=== PATIENT | female | born 1985 | race Caucasian/White ===

== ENCOUNTER 2018-08-30 08:00 | Outpatient (CLI) | payer MEDICAID ==
[2018-08-30 19:18] LABS: BILIRUBIN,URINE NEGATIVE (NEGATIVE); GLUCOSE, URINE (UA) NEGATIVE (NEGATIVE); KETONES,URINE (UA) NEGATIVE (NEGATIVE); LEUKOCYTE ESTERASE, URINE SMALL (NEGATIVE); NITRITE,URINE NEGATIVE (NEGATIVE); OCCULT BLOOD,URINE NEGATIVE (NEGATIVE); PH,URINE 7.5 PH (5.0-7.5); PROTEIN,URINE NEGATIVE (NEGATIVE); UROBILINOGEN,URINE 0.2 (NORMAL) E.U./dL (NORMAL)
[2018-08-30 19:26] LABS: CLARITY,URINE CLOUDY (CLEAR)
[2018-08-30 19:54] LABS: BACTERIA,URINE Many /HPF (None Seen); RBC,URINE None Seen /HPF (0-5); SQUAMOUS EPITHELIAL CELL,UR MANY Squamous (<= Few)
== END 2018-08-30 23:59 ==
LOC: LAB.R 08:00
PROVIDERS: ATTEND Physician Assistant Medical
DX: R30.0 Dysuria (principal)
CPT/HCPCS: 81001; 87086

== ENCOUNTER 2018-10-03 07:59 | Emergency (ER) | payer MEDICAID ==
[2018-10-03] MEDS ORDERED: LORazepam 2 MG/ML VIAL IM STA (08:33)
--- NOTE | 2018-10-03 08:36 | ED Physician Documentation ---
History of Present Illness - Stated complaint Stated Complaint: ANXIETY/2ND TO FEMALE - Chief complaint Chief Complaint: MHE - History obtained from History obtained from: Patient, Family - History of Present Illness Timing: Yesterday - Additonal information Additional information: 33-year-old female with a history of chronic anxiety who is on Zoloft and BuSpar has had a recent therapeutic about 3 days ago and beginning yesterday afternoon she developed some increasing anxiety she is a very difficult night last night this morning she took half a milligram of Xanax without much relief. She relates that at one time she had a miscarriage at 20 weeks and this resulted in a near experience. She is concerned that perhaps this recent therap eutic has reopened this prior experience. She relates that she has had one prior therapeutic she has 4 children and she has had complicated pregnancies. She is here today with her who is supportive at the bedside. Review of Systems Constitutional: denies: Fever Eyes: denies: Decreased vision Ears: denies: Ear pain Nose: denies: Congestion Throat: denies: Sore throat Cardiac: denies: Chest pain / pressure, Palpitations Respiratory: denies: Dyspnea, Cough GI: denies: Abdominal Pain, Nausea, Vomiting : denies: Dysuria, Frequency Skin: denies: Rash Neurologic: denies: Generalized weakness, Focal weakness, Numbness, Difficulty speaking Psychiatric: reports: Anxiety PD PAST MEDICAL HISTORY - Past Medical History Past Medical History: Yes Psych: Depression, Anxiety - Past Surgical History Past Surgical History: Yes General: Cholecystectomy Ortho: Other /K [employer]: Dilation and currettage - Present Medications Home Medications: Ambulatory Orders Medication Instructions Recorded Confirmed Alprazolam [Xanax] 0.5 mg PO PRN 10/03/18 Alprazolam [Xanax] 1 mg PO Q8HR PRN #15 tablet 10/03/18 Sertraline HCl [Zoloft] 150 mg PO DAILY 10/03/18 10/03/18 busPIRone [Buspar] 15 mg PO DAILY 10/03/18 10/03/18 - Allergies Allergies/Adverse Reactions: Allergies Allergy/AdvReac Type Severity Reaction Status Date / Time codeine Allergy Unknown Verified 10/03/18 08:13 - Social History Does the pt smoke?: No Smoking Status: Never smoker Does the pt drink ETOH?: No Does the pt have substance abuse?: No Substance Use and Type: Marijuana - Immunizations Immunizations are current?: Yes - POLST Patient has POLST: No PD ED PE NORMAL - Vitals Vital signs reviewed: Yes (tachy and hypertensive ) - General General: Alert and oriented X 3, Well developed/nourished, Other (teary eyed with labile affect) - HEENT HEENT: Atraumatic, PERRL, EOMI - Neck Neck: Supple, no meningeal sign, No bony TTP - Cardiac Cardiac: RRR, No murmur - Respiratory Respiratory: No respiratory distress, Clear bilaterally - Abdomen Abdomen: Soft, Non tender - Back Back: No CVA TTP, No spinal TTP - Derm Derm: Normal color, Warm and dry, No rash - Extremities Extremities: No deformity, No edema - Neuro Neuro: Alert and oriented X 3, 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, No motor deficit, No sensory deficit, Normal speech Eye Opening: Spontaneous Motor: Obeys Commands Verbal: Oriented GCS Score: 15 - Psych Psych: Other (mood is anxious and the affect is labile) Results - Vitals Vitals: Vital Signs - 24 hr 10/03/18 08:03 Temperature 36.4 C L Heart Rate 105 H Respiratory 20 Rate Blood Pressure 134/96 H O2 Saturation 98 Oxygen O2 Source Room air - Labs Labs: Laboratory Tests 10/03/18 08:40 Urine Color YELLOW Urine Clarity CLEAR Urine pH 5.5 Ur Specific [place] >=1.030 H Urine Protein NEGATIVE Urine Glucose (UA) NEGATIVE Urine Ketones TRACE Urine Occult Blood LARGE H Urine Nitrite NEGATIVE Urine Bilirubin NEGATIVE Urine Urobilinogen 0.2 (NORMAL) Ur Leukocyte Esterase NEGATIVE Urine RBC 11-25 H Urine WBC 0-3 Ur Squamous Epith Cells MOD Squamous H Urine Bacteria Many H Urine Mucus Marked Strands Ur Microscopic Review INDICATED Urine Culture Comments NOT INDICATED PD MEDICAL DECISION MAKING - ED course Complexity details: considered differential, d/w patient, d/w family ED course: 33-year-old female new to the area has had a recent therapeutic and now has significant anxiety. She looks very uncomfortable with the amount of anxiety she has and she is administered a milligram of Ativan IM. She does not have a counselor and she is on 3 medications for anxiety. I have asked the social organization professor to offer the patient some resources. Departure - Departure Disposition: Home, Self Care Clinical Impression: Anxiety Condition: Stable Instructions: ED Stress React Follow-Up: Nicho Gonzalez PA-C [Primary Care Provider] - Prescriptions: Alprazolam [Xanax] 1 mg PO Q8HR PRN #15 tablet PRN Reason: Anxiety
[2018-10-03 08:46] LABS: BILIRUBIN,URINE NEGATIVE (NEGATIVE); GLUCOSE, URINE (UA) NEGATIVE (NEGATIVE); KETONES,URINE (UA) TRACE mg/dL (NEGATIVE); LEUKOCYTE ESTERASE, URINE NEGATIVE (NEGATIVE); NITRITE,URINE NEGATIVE (NEGATIVE); OCCULT BLOOD,URINE LARGE (NEGATIVE); PH,URINE 5.5 PH (5.0-7.5); PROTEIN,URINE NEGATIVE (NEGATIVE); UROBILINOGEN,URINE 0.2 (NORMAL) E.U./dL (NORMAL)
[2018-10-03 09:10] LABS: CLARITY,URINE CLEAR (CLEAR)
[2018-10-03 09:12] LABS: BACTERIA,URINE Many /HPF (None Seen); MUCUS,URINE Marked Strands; SQUAMOUS EPITHELIAL CELL,UR MOD Squamous (<= Few)
[2018-10-03 10:28] VITALS: BP 128/88
== END 2018-10-03 10:26 | disposition home or self-care (01) ==
LOC: ED 07:59
DX: F41.9 Anxiety disorder, unspecified (principal)
CPT/HCPCS: 81001; 96372; 99283; J2060; 81003; 87086

== ENCOUNTER 2019-08-03 08:00 | Outpatient (CLI) | payer MEDICAID ==
[2019-08-04 21:17] LABS: CANDIDA GROUP DNA NEGATIVE (NEGATIVE); CANDIDA KRUSEI DNA NEGATIVE (NEGATIVE); TRICHOMONAS VAGINALIS DNA NEGATIVE (NEGATIVE)
== END 2019-08-03 23:59 | disposition home or self-care (01) ==
LOC: LAB.R 08:00
PROVIDERS: ATTEND Obstetrics & Gynecology
DX: N76.0 Acute vaginitis (principal)
CPT/HCPCS: 87661; 87801